=== PATIENT | female | born 1940 | race Caucasian/White ===

== ENCOUNTER 2016-12-09 09:34 | Emergency (ER) | payer MEDICARE, OTHER ==
[2016-12-09 09:43] VITALS: BP 158/86
[2016-12-09 10:17] LABS: CHLORIDE,CL 103 mmol/L (98-107); SODIUM,NA 138 mmol/L (136-145)
--- NOTE | 2016-12-09 10:45 | EDM.PDOC ---
ED HPI Trauma - General Chief Complaint: Lower Extremity Injury/Pain Stated Complaint: right leg pain Time Seen by Provider: 12/09/16 10:45 Source: Reports: Patient, Other (Daughter) - History of Present Illness INITIAL COMMENTS - FREE TEXT/NARRATIVE: The patient presents with complaint of chronic right leg pain for the past 1 year that has increased significantly over the past few weeks. She has stage 4 colorectal cancer with metastases to the lungs and lymph nodes of the groin. She was initially diagnosed in October of 2012 and had a partial colectomy with colostomy in December of 2013 and has had chemotherapy since then. She has been treated with FOLFOX which was completed 6 weeks ago and caused significant neuropathy, maintenance with Avastin with 5-FU on a few occasions for 3-6 months , and LONSURF which she is currently receiving and has completed 1 cycle of 3 planned cycles. She has had DVT and superficial blood clots in the right leg and is currently on therapeutic Lovenox of 120 mg SQ daily and she also has been diagnosed with osteoarthritis of the right knee and right hip. She has had increased pain of the right leg following recent LONSURF chemotherapy and is on Ultracet for pain control and has been taking it every 4 hours along with Tylenol arthritis twice daily and is still having significant breakthrough pain and is currently taking her daily maximum dose of acetaminophen. She describes the pain in the right leg as aching and stabbing and denies burning pain, shocking or electric pain, and paresthesias. She denies pain in other locations. She denies nausea or vomiting. She denies other symptoms or complaints. Allergies/ADRs: Allergies codeine Allergy (Verified 12/09/16 09:43) Rash Penicillins Allergy (Verified 12/09/16 09:43) Rash Home Medications: Ambulatory Orders Prochlorperazine [Compazine] 10 mg PO Q6HR PRN 12/15/14 [Confirmed 12/09/16] Enoxaparin [Lovenox] 120 mg SUBCUT Q24H 02/07/15 [Confirmed 12/09/16] Ascorbic Acid [Vitamin C] 250 mg PO DAILY 02/02/16 [Confirmed 12/09/16] Gabapentin [Neurontin] 300 mg PO TID 02/02/16 [Confirmed 12/09/16] Acetaminophen 650 mg PO TID 02/10/16 [Confirmed 12/09/16] Metoprolol Succinate [Toprol XL] 50 mg PO BEDTIME tab.er 02/17/16 [Confirmed ] ClonazePAM [KlonoPIN] 0.5 mg PO BID 12/09/16 [Confirmed 12/09/16] EPINEPHrine [Epinephrine] 0.3 mg IM ASDIRECTED PRN 12/09/16 [Confirmed 12/09/16] NIFEdipine [Procardia XL] 60 mg PO DAILY 12/09/16 [Confirmed 12/09/16] traMADol Hcl/Acetaminophen [Ultracet Tablet] 1 each PO Q4HR PRN 12/09/16 [ Confirmed 12/09/16] Past Medical History HEENT History: Reports: Other (see below) Other HEENT History: glasses Cardiovascular History: Reports: Hypertension Other Cardiovascular History: n/a Respiratory History: Reports: Other (see below) Other Respiratory History: lung ca Gastrointestinal History: Reports: Other (see below) Other Gastrointestinal History: Stage 4 colorectal cancer with metastases to lungs and groin lymph nodes. Genitourinary History: Reports: Other (see below) Other Genitourinary History: n/a BEHAVIORAL HEALTH COUNSELOR History: Reports: Other (see below) Other OB/BYN History: D and C 2013 Musculoskeletal History: Reports: Osteoarthritis Other Musculoskeletal History: n/a Neurological History: Reports: Neuropathy, diabetic Other Neuro History: n/a Endocrine/Metabolic History: Reports: Osteoporosis Other Endocrine/Metabolic History: n/a Hematologic History: Reports: Other (see below) Other Hematologic History: decreased neutrophils &wbc post chemo Immunologic History: Reports: Immunosuppression Oncologic (Cancer) History: Reports: Colon Other Oncologic History: colorectal cancer with mets to the lungs - Infectious Disease History Infectious Disease History: Reports: Chicken pox, Measles, Mumps - Past Surgical History GI Surgical History: Reports: Cholecystectomy, Colonoscopy, Colostomy, Other ( see below) Other GI Surgeries/Procedures: bowel surgery resulting in colostomy Social & Family History - Tobacco Use Smoking Status *Q: Never Smoker Second Hand Smoke Exposure: No - Caffeine Use Caffeine Use: Reports: Coffee - Alcohol Use Days Per Week of Alcohol Use: 0 - Recreational Drug Use Recreational Drug Use: No Drug Use in Last 12 Months: No - Living Situation & Occupation Living situation: Reports: (3 children, 1960) Occupation: other ([employer] ) Review of Systems - Review of Systems Review Of Systems: ROS reveals no pertinent complaints other than HPI. Trauma Exam - Physical Exam Exam: See Below Exam Limited By: No limitations General Appearance: Reports: alert, WD/WN, no apparent distress Head: Reports: atraumatic, normocephalic Eyes: bilateral eye: EOMI, normal fundi, normal inspection, PERRL Ears: Reports: normal external exam, normal canal, hearing grossly normal, normal TMs Nose: Reports: normal inspection, normal mucousa, no blood Throat/Mouth: Reports: Normal inspection, Normal lips, Normal teeth, Normal gums , Normal oropharynx Neck: Reports: non-tender, full range of motion, normal alignment, normal inspection, other (No nuchal rigidity.). Denies: paraspinous muscle tender, spinous processes tender, tender lateral, tender midline Respiratory Exam: Reports: no respiratory distress, lungs clear, normal breath sounds, no accessory muscle use, chest non-tender Cardiovascular: Reports: normal peripheral pulses, regular rate, rhythm, no edema, no gallop, no murmur, no rub GI/Abdominal: Reports: normal bowel sounds, soft, non tender, no organomegaly Back: Reports: full range of motion. Denies: CVA tenderness (R), CVA tenderness (L), muscle spasm, paraspinal tenderness, vertebral tenderness Extremities: Reports: no evidence of injury, normal range of motion, other ( There is pain on palpation of the right lower leg but no palpable cords. There are several areas that feel like scar tissue along the medial margin of the lower leg and calf which the patient's daughter reports is normal and no change currently. There are no palpable cords. Left leg has no pain on palpation or palpable cords. Sandhya sign absent bilaterally.) Neurologic: Reports: manager technology II-XII nml as tested, no motor/sensory deficits, normal mood/affect, oriented x 3, abnormal cerebellar tests, other (GCS 15. No pronator drift of arms or legs. No dysmetria. Speech normal. No clonus or spasticity. Babinski absent in bilateral LE.) Skin: Reports: Normal color, Warm/dry Course - Vital Signs Last Recorded V/S: Last Vital Signs Temp 36.4 C 12/09/16 09:34 Pulse 76 12/09/16 09:34 Resp 20 12/09/16 09:34 BP 158/86 H 12/09/16 09:34 Pulse Ox 99 12/09/16 09:34 - Orders/Labs/Meds Labs: Laboratory Tests 12/09/16 12/09/16 Range/Units 09:50 09:50 WBC 4.9 (4.0-10.2) K/uL RBC 4.06 (3.77-5.09) M/uL Hgb 11.8 (11.7-15.5) g/dL Hct 38.3 (34.0-46.0) % MCV 94.3 (84.0-98.0) fL MCH 29.1 (28.2-33.3) pg MCHC 30.8 L (31.7-36.0) g/dL RDW 19.2 H (11.2-14.1) % Plt Count 145 L (150-350) K/uL Neut % (Auto) 67.7 (45.0-80.0) % Lymph % (Auto) 25.7 (10.0-50.0) % [place] % (Auto) 3.8 (2.0-14.0) % Eos % (Auto) 1.6 (0.0-5.0) % Baso % (Auto) 1.2 (0.0-2.0) % Neut # (Auto) 3.34 (1.40-7.00) K/uL Lymph # (Auto) 1.27 (0.50-3.50) K/uL [place] # (Auto) 0.19 (0.00-1.00) K/uL Eos # (Auto) 0.08 (0.00-0.50) K/uL Baso # (Auto) 0.06 (0.00-0.20) K/uL Sodium 138 (136-145) mmol/L Potassium 4.2 (3.5-5.1) mmol/L Chloride 103 (98-107) mmol/L Carbon Dioxide 26.7 (21.0-32.0) mmol/L BUN 14 (7-18) mg/dL Creatinine 0.57 (0.51-1.17) mg/dL Est Cr Clr Drug Dosing 63.36 mL/min Estimated GFR (MDRD) > 60 mL/min Glucose 99 (74-106) mg/dL Calcium 8.8 (8.5-10.1) mg/dL Total Bilirubin 0.4 (0.2-1.0) mg/dL AST 43 H (15-37) U/L ALT 58 (12-78) U/L Alkaline Phosphatase 336 H (46-116) IU/L C-Reactive Protein 0.1 (<=0.9) mg/dL Total Protein 7.7 (6.4-8.2) g/dL Albumin 3.5 (3.4-5.0) g/dL Departure - Departure Time of Disposition: 11:03 Disposition: Home, Self-Care 01 Clinical Impression: Chronic pain of right lower extremity, Colorectal cancer, stage IV Forms: ED Department Discharge - Assessment/Plan Assessment:: Chronic pain of right lower extremity. Colorectal cancer, stage IV. Plan: 1. Discussed treatment options including prescription for Ultram with supplemental acetaminophen or Tylenol arthritis and narcotic such as oxycodone. Explained concern given patient is on clonazepam and would want patient to discontinue clonazepam prior to taking or agree to benefit of pain control with understanding of risk of [employer]ER depression and even respiratory suppression. 2. At this time the patient and daughter agree to Ultram treatment at this time. 3. Given Ultram 50 mg PO in ER x 1. 4. Prescription for Ultram 50 mg tabs, 50-100 mg every 4-6 hours as needed for pain, 10 tabs, 0 refills. 5. OTC acetaminophen or Tylenol Arthritis 325-650 mg every 4-6 hours as needed for pain. Do not exceed 4,000 mg oral daily. 6. Drink at least ten 8 ounce glasses of water daily. 7. Followup with PCP MARLA this week in clinic to assess pain control. 8. Followup with Oncology as scheduled.
[2016-12-09] MEDS ORDERED: traMADol 50 MG Tab PO ONE (10:46)
== END 2016-12-09 11:29 | disposition home or self-care (01) ==
LOC: LL.ED 09:34
DX: M79.661 Pain in right lower leg (principal); G89.29 Other chronic pain; C18.9 Malignant neoplasm of colon, unspecified; I10 Essential (primary) hypertension; Z88.0 Allergy status to penicillin; Z88.8 Allergy status to other drugs, medicaments and biological substances; Z79.01 Long term (current) use of anticoagulants; Z79.891 Long term (current) use of opiate analgesic; Z79.899 Other long term (current) drug therapy; Z88.6 Allergy status to analgesic agent
CPT/HCPCS: 36415; 80053; 85025; 86140; 99283; A9270